=== PATIENT | female | born 1960 | race Caucasian/White ===

== ENCOUNTER → 2017-02-24 | Outpatient (CLI) | payer MEDICAID ==
[~2017-02-24] MED LIST: GABA100C8 PO; LISI2.5T PO; LISI5TAB7 PO; TRAM50TA2 PO
== END | disposition home or self-care (01) ==
LOC: CFH 14:25
PROVIDERS: ATTEND Registered Nurse
DX: M47.897 Other spondylosis, lumbosacral region (principal); M16.11 Unilateral primary osteoarthritis, right hip; M41.86 Other forms of scoliosis, lumbar region; M48.06 Spinal stenosis, lumbar region; G89.29 Other chronic pain; M79.604 Pain in right leg
CPT/HCPCS: 72110; 72148

== ENCOUNTER 2017-10-14 17:05 | Emergency (ER) | payer MEDICAID ==
[~2017-10-14] VITALS: Ht 167.6 cm; Wt 61.4 kg
[~2017-10-14 17:05] MED LIST changes: +GABA-826 PO; -GABA100C8 PO
[2017-10-14] MEDS ORDERED: SODIUM CHLORIDE 0.9% 1,000ML IVBOLUS ONE (18:00)
[2017-10-14] MEDS ORDERED: KETOROLAC 30 MG/1 ML IVPush ONE (18:00)
[2017-10-14] MEDS ORDERED: ALBUTEROL/IPRATROPIUM 2.5MG/0.5MG, 3 ML NPPB ONE (18:00)
[2017-10-14] MEDS ORDERED: methylPREDNISolone SOD SUCC 125 MG/2 ML IVPush ONE (18:00)
[2017-10-14] MEDS ORDERED: SODIUM CHLORIDE FLUSH 10ML SYR IVF ONE (18:00)
[2017-10-14] MEDS ORDERED: ALBUTEROL/IPRATROPIUM 2.5MG/0.5MG, 3 ML ONE (18:03)
[2017-10-14 18:30] LABS: RAPID INFLUENZA A POSITIVE (Negative); RAPID INFLUENZA B Negative (Negative)
[2017-10-14 18:36] LABS: HEMATOCRIT 43.4 % (34.6-47.8); HEMOGLOBIN 15.1 g/dL (11.7-16.4); WHITE BLOOD COUNT 3.8 x10^3/uL (3.4-10)
[2017-10-14 18:41] LABS: ASPARTATE AMINO TRANSFERASE 30 U/L (15-37); BLOOD UREA NITROGEN 17 mg/dL (7-18)
[2017-10-14] MEDS ORDERED: KETOROLAC 30 MG/1 ML ONE (18:49)
[2017-10-14] MEDS ORDERED: methylPREDNISolone SOD SUCC 125 MG/2 ML ONE (18:49)
[2017-10-14] MEDS ORDERED: LISI5TAB7 PO (18:59)
[2017-10-14] MEDS ORDERED: RIVA20TA PO (18:59)
[2017-10-14] MEDS ORDERED: AMOX1TAB64 PO (18:59)
[2017-10-14 19:33] VITALS: BP 131/89
== END 2017-10-14 19:44 | disposition home or self-care (01) ==
LOC: ED 19:06
DX: J10.1 Influenza due to other identified influenza virus with other respiratory manifestations (principal); J45.909 Unspecified asthma, uncomplicated; I10 Essential (primary) hypertension
CPT/HCPCS: 36415; 71010; 80053; 83605; 84145; 85025; 87040; 87400; 93005; 94640; 96361; 96374; 96375; 99285; J1885; J2930; J7030; J7620

== ENCOUNTER 2019-04-21 11:59 | Emergency (ER) | payer MEDICAID ==
[~2019-04-21] VITALS: Ht 165.1 cm; Wt 57.0 kg
[~2019-04-21 11:59] MED LIST changes: +AMOX1TAB64 PO; +RIVA20TA PO
[2019-04-21 12:11] VITALS: BP 106/75
[2019-04-21] MEDS ORDERED: OXYcodone/APAP 5/325MG TABLET PO ONE (12:30)
[2019-04-21] MEDS ORDERED: OXYcodone/APAP 5/325MG TABLET ONE (12:45)
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
--- NOTE | 2019-04-21 14:20 | NUR ---
SOME IMPROVEMENT IN KNEE PAIN SINCE MEDICATED
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
== END 2019-04-21 14:59 | disposition home or self-care (01) ==
LOC: ED 14:58
DX: S80.01XA Contusion of right knee, initial encounter (principal); M71.21 Synovial cyst of popliteal space [Baker], right knee; M25.461 Effusion, right knee; R60.0 Localized edema; M79.661 Pain in right lower leg; I10 Essential (primary) hypertension; M19.90 Unspecified osteoarthritis, unspecified site; J45.909 Unspecified asthma, uncomplicated; M54.9 Dorsalgia, unspecified; G89.29 Other chronic pain; W10.9XXA Fall (on) (from) unspecified stairs and steps, initial encounter; Y93.89 Activity, other specified; Y92.009 Unspecified place in unspecified non-institutional (private) residence as the place of occurrence of the external cause; Y99.8 Other external cause status
CPT/HCPCS: 99284